=== PATIENT | male | born 1990 | race African-American/Black ===

== ENCOUNTER 2017-03-01 17:34 | Emergency (ER) | payer SELFPAY ==
[2017-03-01] MEDS ORDERED: TRAMADOL HCL 50 MG TABLET PO ONE (17:56)
[2017-03-01] MEDS ORDERED: PENICILLIN V POTASSIUM 500 MG TABLET PO ONE (17:56)
[2017-03-01] MEDS ORDERED: DIPHENHYDRAMINE HCL 25 MG CAPSULE PO ONE (17:56)
[2017-03-01] MEDS ORDERED: BUPIVACAINE HCL 0.25% /EPINEPHRINE INJ/PF 30 ML SDV INJ ONE (17:56)
--- NOTE | 2017-03-01 17:57 | ER Document Report ---
HPI - HPI Patient complains to provider of: toothache Onset: Other - 2 days ago, headache started yesterday, minimal relief with tylenol Onset/Duration: Sudden - fracture his upper left tooth 5 days ago, unsure of ZHANNA Pain Level: 4 Context: patient is a 26 year old male with toothache for 2 days after toothfracture Exacerbated by: Movement Relieved by: Remaining still Similar symptoms previously: No Recently seen / treated by doctor: No - REPRODUCTIVE Reproductive: DENIES: : - DERM Skin Color: Normal Past Medical History - Social History Smoking Status: Current Every Day Smoker Family History: Arthritis, DM, Hyperlipidemia, Hypertension, Malignancy Patient has suicidal ideation: No Patient has homicidal ideation: No Pulmonary Medical History: Reports: Hx Asthma Renal/ Medical History: Denies: Hx Peritoneal Dialysis - Immunizations Immunizations up to date: Yes Hx Diphtheria, Pertussis, Tetanus Vaccination: No Vertical Provider Document - CONSTITUTIONAL Agree With Documented VS: Yes Exam Limitations: No Limitations General Appearance: WD/WN, No Apparent Distress - INFECTION CONTROL TRAVEL OUTSIDE OF THE [place].S. IN LAST 30 DAYS: No - HEENT HEENT: Atraumatic, Normal ENT Exam, Normocephalic Mouth Diagram: 1 - fracture wiht old dental careis no fracture 2 - fracture with dental caries, no abscess Notes: Uvula midline. Airway patent. No evidence of tonsillar enlargement, peritonsillar abscess, retropharyngeal abscess. - NECK Neck: Normal Inspection, Other - no evidence of Chris's angina. negative: Lymphadenopathy-Left, Lymphadenopathy-Right - RESPIRATORY Respiratory: Breath Sounds Normal, No Respiratory Distress, Chest Non-Tender - CARDIOVASCULAR Cardiovascular: Regular Rate, Regular Rhythm, No Murmur - NEURO Level of Consciousness: Awake, Alert, Appropriate Motor/Sensory: No Motor Deficit, No Sensory Deficit Course - Re-evaluation Re-evalutation: 03/01/17 18:37 26-year-old male who is hemodynamic stable, no acute distress afebrile. Received a 5 cc Sensorcaine block with complete resolution of symptoms. No complications. Discharged home with instruction to follow-up with dentist. Procedures - Additional Procedures dental block Additional Procedures: Other - dental block: buccal 5cc sensorcaine block left cheeck, complete resolution of pain, no complications Discharge - Discharge Clinical Impression: Toothache Disposition: HOME, SELF-CARE Instructions: Penicillin V K ([facility]), Toothache ([facility]) Additional Instructions: TOOTHACHE: Your pain is due to dental decay. The tooth must be repaired in order for you to feel better. You will, therefore, be referred to a dentist. We do not have dentists on the staff at [facility]. Severe swelling or drainage around a tooth usually means a dental abscess. This also requires evaluation and treatment by the dentist, but antibiotics may be prescribed while awaiting dental treatment. You should be rechecked immediately if you develop major swelling of the face, increasing pain, a lump in the jaw or gums, headache, difficulty swallowing, or fever. ORAL NARCOTIC MEDICATION: You have been given a prescription for pain control. This medication is a narcotic. It's best taken with food, as nausea can result if taken on an empty stomach. Don't operate machinery or drive within six hours of taking this medication. Do not combine this medicine with alcohol, or with any medication which can cause sedation (such as cold tablets or sleeping pills) unless you get permission from the physician. Narcotics tend to cause constipation. If possible, drink plenty of fluids and eat a diet high in fiber and fruits. Please be aware that prescription narcotics also have the potential for abuse. People become addicted to these medications because of the general sense of wellbeing that they induce. This feeling along with a significant reduction in tension, anxiety, and aggression provides a stimulating seductive quality to these drugs. Once your pain is under control, we encourage you to discard your unused narcotics. PENICILLIN V K: You have been given a prescription for Penicillin VK. Your physician has determined that this is the best antibiotic for your condition. Pen VK can be taken with meals, however more of the antibiotic gets into the bloodstream if it's taken on an empty stomach. Penicillin usually has no side effects. However, allergy to penicillins is common. If you have had an allergic reaction to any drug of the penicillin family, you should never take any other penicillin. Notify your doctor at once if you develop hives, itching, swelling, faintness, or shortness of breath. FOLLOW-UP CARE: You have been referred for follow-up care to the dentists listed below. Call the dentists office for an appointment as you were instructed or within the next two days. If you experience worsening or a significant change in your symptoms, notify the physician immediately or return to the Emergency Department at any time for re-evaluation. [facility] Address: [address] [place] [id number] [facility] [address] [place], [place] Sunday mornings, by appointment [facility] [address] [place] [address] [facility] [place] [address] [facility] [address] [facility] ([email or web address] Roll[facility] ([email or web address])[facility] [address] [facility] [email or web address] [facility] [address] [place] [address] Sunday- 8:00am to 5:00 pm Will see patients from other [facility]. Charges based on income and family size and accepts Medicare, Medicaid, and Insurances Will pull molars [facility], [facility]. [id number] Hours of Operation 8:00 am - 4:30 pm weekdays Prescriptions: Tramadol HCl 50 mg PO Q8HP PRN #14 tablet PRN Reason: Ibuprofen [Motrin 800 mg Tablet] 800 mg PO Q8H PRN #30 tab PRN Reason: Penicillin V Potassium [Penicillin Vk 500 mg Tablet] 500 mg PO BID #20 tablet
[2017-03-01] MEDS ORDERED: BUPIVACAINE HCL 0.5 % INJ/PF 30 ML SDV INJ ONE (18:19)
[2017-03-01] MEDS ORDERED: KETOROLAC TROMETHAMINE 60 MG/2 ML SDV IM ONE (19:13)
[2017-03-01 19:33] VITALS: BP 140/74
== END 2017-03-01 19:33 | disposition home or self-care (01) ==
LOC: ER 17:34
PROC: 3E0T3BZ Introduction of Anesthetic Agent into Peripheral Nerves and Plexi, Percutaneous Approach (ICD-10-PCS; principal; 2017-03-01)
DX: K02.9 Dental caries, unspecified (principal); K08.89 Other specified disorders of teeth and supporting structures; F17.200 Nicotine dependence, unspecified, uncomplicated; J45.909 Unspecified asthma, uncomplicated
CPT/HCPCS: 99282; 96372; 64400; J1885

== ENCOUNTER 2017-03-28 02:31 | Emergency (ER) | payer SELFPAY ==
[2017-03-28] MEDS ORDERED: CLINDAMYCIN HCL 150 MG CAPSULE PO ONE (04:42)
[2017-03-28] MEDS ORDERED: HYDROCODONE/ACETAMINOPHEN 5-325 MG 6 TAB/DSPK PO PRN (04:42)
--- NOTE | 2017-03-28 04:48 | ER Document Report ---
HPI - HPI Patient complains to provider of: left jaw and tooth pain Pain Level: 5 Context: Patient is a 26-year-old male who comes emergency department for chief complaint of dental pain in the left lower jaw and jaw swelling that started yesterday. He states he was treated for dental infection 3 weeks ago and thinks it did not work. He does admit however that his symptoms resolved until yesterday. He denies sore throat, neck pain, fever. He states he feels swelling in the jaw and it feels like it is swelling up to his eye with pressure. - CARDIOVASCULAR Cardiovascular: DENIES: Chest pain - REPRODUCTIVE Reproductive: DENIES: : - DERM Skin Color: Normal Past Medical History - General Information source: Patient - Social History Smoking Status: Former Smoker Drug Abuse: None Lives with: Spouse/Significant other Family History: Arthritis, DM, Hyperlipidemia, Hypertension, Malignancy Pulmonary Medical History: Reports: Hx Asthma Renal/ Medical History: Denies: Hx Peritoneal Dialysis - Immunizations Immunizations up to date: Yes Hx Diphtheria, Pertussis, Tetanus Vaccination: No Vertical Provider Document - CONSTITUTIONAL General Appearance: WD/WN, No Apparent Distress - INFECTION CONTROL TRAVEL OUTSIDE OF THE U.S. IN LAST 30 DAYS: No - HEENT HEENT: negative: Normal ENT Exam - Patient with dental caries in the left lower molars, there are 3, there is erythema of the gumline, there is slight swelling of the outer jaw, there is no significant tenderness, induration, or fluctuance to the area. No evidence of drainable abscess. Normal throat exam, normal soft tissue exam of the neck, no lymphadenopathy, normal ENT exam otherwise. - RESPIRATORY O2 Sat by Pulse Oximetry: 99 Course - Re-evaluation Re-evalutation: Mild swelling of the left jaw area, no evidence of swelling in the submental area, no evidence of Chris's angina, unremarkable lymph node exam. No drainable abscess noted on oral exam. Tender area of swelling is still soft with no fluctuance, induration, or head. Patient will be placed on clindamycin , he states that [facility] and is to be seen next month. Discussed return precautions, patient states understanding and agreement. - Vital Signs Vital signs: Temp Pulse Resp BP Pulse Ox 99.0 F 71 18 144/75 H 99 03/28/17 02:49 03/28/17 02:49 03/28/17 02:49 07/12/17 02:49 03/28/17 02:49 Discharge - Discharge Clinical Impression: Dental infection Condition: Stable Disposition: HOME, SELF-CARE Additional Instructions: Your examination is consistent with a dental infection. Take the prescribed antibiotics to completion. Follow-up with a dentist to prevent this from happening again. Return to the emergency department if you worsen including increased pain or swelling. Prescriptions: Ibuprofen [Motrin 600 mg Tablet] 600 mg PO Q8HP PRN #24 tablet PRN Reason: Tramadol HCl 50 mg PO Q8HP PRN #20 tablet PRN Reason: Clindamycin HCl [Cleocin 150 mg Capsule] 150 mg PO Q6 #56 capsule
[2017-03-28 04:54] VITALS: BP 129/75
== END 2017-03-28 04:53 | disposition home or self-care (01) ==
LOC: ER 02:31
DX: K04.7 Periapical abscess without sinus (principal); K02.9 Dental caries, unspecified; K08.89 Other specified disorders of teeth and supporting structures; R22.0 Localized swelling, mass and lump, head; J45.909 Unspecified asthma, uncomplicated; Z87.891 Personal history of nicotine dependence
CPT/HCPCS: 99282

== ENCOUNTER 2017-03-30 01:13 | Emergency (ER) | payer SELFPAY ==
[2017-03-30 01:17] VITALS: BP 129/66
[2017-03-30] MEDS ORDERED: HYDROCODONE/ACETAMINOPHEN 5-325 MG TABLET PO ONE (01:45)
--- NOTE | 2017-03-30 01:45 | ER Document Report ---
ED General - General Chief Complaint: Toothache Stated Complaint: TOOTHACHE Time Seen by Provider: 03/30/17 01:24 Notes: Patient is a 26-year-old male who presents with complaints of a possible dental abscess. He was seen yesterday but there was not much induration or inflammation therefore placed on clindamycin. He says the last 24 hours he has had increased swelling next to his gumline and he feels that there is an abscess developing. No difficulty breathing. No difficulty swallowing. No fevers. No other complaints at this time. TRAVEL OUTSIDE OF THE U.S. IN LAST 30 DAYS: No - Related Data Allergies/Adverse Reactions: No Known Allergies Allergy (Verified 03/30/17 01:39) Past Medical History - Social History Smoking Status: Unknown if Ever Smoked Frequency of alcohol use: None Drug Abuse: None Family History: Arthritis, DM, Hyperlipidemia, Hypertension, Malignancy Patient has suicidal ideation: No Patient has homicidal ideation: No Pulmonary Medical History: Reports: Hx Asthma Renal/ Medical History: Denies: Hx Peritoneal Dialysis - Immunizations Immunizations up to date: Yes Hx Diphtheria, Pertussis, Tetanus Vaccination: No Review of Systems - Review of Systems Notes: My Normal Review Basic REVIEW OF SYSTEMS: CONSTITUTIONAL : Denies fever, chills, or sweats. Denies recent illness. EENT: Dental abscess. RESPIRATORY: Denies cough, cold, or chest congestion. Denies shortness of breath, difficulty breathing, or wheezing. MUSCULOSKELETAL: Denies neck or back pain or joint pain or swelling. SKIN: Denies rash or skin lesions. NEUROLOGICAL: Denies altered mental status or loss of consciousness. Denies headache. Denies weakness or paralysis or loss of use of either side. Denies problems with gait or speech. Denies sensory or motor loss. ALL OTHER SYSTEMS REVIEWED AND NEGATIVE. Physical Exam - Vital signs Vitals: Temp Pulse Resp BP Pulse Ox 98.6 F 70 18 129/66 H 95 03/30/17 01:16 03/30/17 01:16 03/30/17 01:16 03/30/17 01:16 03/30/17 01:16 - Notes Notes: General Appearance: Well nourished, alert, cooperative, no acute distress, moderate obvious discomfort. Vitals: reviewed, See vital signs table. Head: no swelling or tenderness to the head Eyes: PERRL, EOMI, Conjuctiva clear Mouth: Patient has multiple dental caries. Recent has some inflammation what appears to be a sara-gingival abscess just lateral to the lower left mandible. Neck: Supple, no neck tenderness, no swelling below the mandible. Skin: warm, dry, appropriate color, no rash Neuro: speech clear, oriented x 3, normal affect, responds appropriately to questions. Course - Re-evaluation Re-evalutation: 03/30/17 01:44 03/30/17 02:33 Patient is feeling much improved after the drainage of the abscess. Patient encouraged to follow-up closely with the dentist for more definitive treatment. He is encouraged to continue take clindamycin. He says he is going to [place] to see a dentist. He is on a waiting list for the dental clinic here in [facility] as well. Patient encouraged to return to ER if he has any increased swelling, fevers, difficulty breathing, or she feels unwell. Patient agrees with plan and will be discharged home. Dictation of this chart was performed using voice recognition software; therefore, there may be some unintended grammatical errors. - Vital Signs Vital signs: Temp Pulse Resp BP Pulse Ox 98.6 F 70 18 129/66 H 95 03/30/17 01:16 03/30/17 01:16 03/30/17 01:16 03/30/17 01:16 03/30/17 01:16 Procedures - Incision and Drainage left jaw Type: Simple Blade size: 11 Incision Method: Incision made with needle Amount/type of drainage: 5mls of purulent drainage Notes: 03/30/17 01:44 I initially aspirated approximately 4 mL's of purulent drainage. From the abscess that was just lateral to the left lower jaw. This was done using a syringe and 18-gauge needle. After that made a small incision with a scalpel so that there could be further drainage as needed. Patient tolerated procedure well. No complications. Discharge - Discharge Clinical Impression: Dental abscess Condition: Good Disposition: HOME, SELF-CARE Instructions: Oral Narcotic Medication ([facility]) Additional Instructions: Please continue to take the antibiotics as prescribed. Please return to the ER if you have worsening facial swelling, fevers, vomiting, difficulty breathing, swelling thatt is extending below the jaw or into the neck, or if you feel unwell. Forms: Return to Work
[2017-03-30] MEDS ORDERED: HYDROCODONE/ACETAMINOPHEN 5-325 MG 6 TAB/DSPK PO PRN (02:31)
== END 2017-03-30 02:56 | disposition home or self-care (01) ==
LOC: ER 01:13
PROC: 0C9XXZ0 Drainage of Lower Tooth, External Approach, Single (ICD-10-PCS; principal; 2017-03-30)
DX: K04.7 Periapical abscess without sinus (principal)
CPT/HCPCS: 99282

== ENCOUNTER 2017-10-25 23:29 | Emergency (ER) | payer SELFPAY ==
[2017-10-25] MEDS ORDERED: OXYCODONE-ACETAMINOPHEN 5-325 MG TABLET PO ONE (23:47)
[2017-10-25] MEDS ORDERED: DIPH/PERTUSS(ACELL)/TETANUS VAC/PF 0.5 ML SYR (>=10YO) IM ONE (23:57)
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
[2017-10-26] MEDS ORDERED: PROPOFOL INJ 200 MG/20 ML VIAL IV ONE (02:06)
[2017-10-26] MEDS ORDERED: NORMAL SALINE 1000 ML 1,000 ML IV ONE (02:07)
[2017-10-26] MEDS ORDERED: CEFAZOLIN 1 GM/D5W RTU 1 GM/50 ML RTUPB IV ONE (02:08)
[2017-10-26] MEDS ORDERED: LIDOCAINE 1% INJ-PF (10 MG/ML) 30 ML SDV INJ ONE (02:32)
[2017-10-26] MEDS ORDERED: HYDROCODONE/ACETAMINOPHEN 5-325 MG (6 TAB/ER DISP) PO PRN (04:43)
[2017-10-26] MEDS ORDERED: HYDROCODONE/ACETAMINOPHEN 5-325 MG (6 TAB/ER DISP) ONE (04:44)
[2017-10-26 04:51] VITALS: BP 123/74
--- NOTE | 2017-10-26 08:30 | RADIOLOGY REPORT (SQ) ---
EXAM DESCRIPTION: HAND RIGHT 2 VIEWS COMPLETED DATE/TIME: 10/26/2017 3:50 am REASON FOR STUDY: post reduction COMPARISON: 10/26/2017, 0005 hours EXAM PARAMETERS: NUMBER OF VIEWS: Three views. TECHNIQUE: AP, lateral and oblique radiographic images acquired of the right hand. LIMITATIONS: Ulnar gutter plaster splint FINDINGS: Artifact from plaster splint. There is persistent angulation at the 4th midshaft metacarp al fracture with slight dorsal displacement of the distal fracture fragment. Minimal persistent palmar angulation of the distal 5th metacarpal fragment. IMPRESSION: Persistent angulation at the 4th metacarpal midshaft fracture. Improved alignment at the 5th metacarpal distal diaphysis fracture TECHNICAL DOCUMENTATION: JOB ID: [id number] [employer]- All Rights Reserved
== END 2017-10-26 04:51 | disposition home or self-care (01) ==
LOC: ER 23:29
PROC: 0PSP0ZZ Reposition Right Metacarpal, Open Approach (ICD-10-PCS; principal; 2017-10-25)
DX: S62.91XB Unspecified fracture of right hand, initial encounter for open fracture (principal); M79.644 Pain in right finger(s); W22.8XXA Striking against or struck by other objects, initial encounter; F17.210 Nicotine dependence, cigarettes, uncomplicated
CPT/HCPCS: 99406; 99283; 96361; 99152; 90471; 96365; 73130; 73120; 90715; 26615; J0690; J3490; J7030

== ENCOUNTER 2017-11-01 10:12 | Emergency (ER) | payer SELFPAY ==
[2017-11-01] MEDS ORDERED: HYDROCODONE/ACETAMINOPHEN 5-325 MG (6 TAB/ER DISP) PO PRN (11:27)
--- NOTE | 2017-11-01 11:31 | ER Document Report ---
HPI - HPI Pain Level: 4 Notes: Patient is a 27-year-old male who presents to the ED for guidance in accordance to an orthopedic consult. Patient states that he does continue to have pain to his right lateral hand. Patient was found to have fractures of his fourth and fifth carpals that were realigned/reduced. Patient states that they did place one stitch to the area as well. Patient states that they called orthopedics and were told that they needed $400 upfront to get seen so they did not go to the appointment. Patient states that he is continuing to take his medications without any side effects to note. He has not noticed any worsening symptoms. Denies any drug allergies. No other concerns or complaints. Denies any headache, fever, URI, sore throat, chest pain, palpitations, syncope, cough, shortness of breath, wheeze, dyspnea, abdominal pain, nausea/vomiting/diarrhea, urinary retention, dysuria, hematuria, loss of control of bowel or bladder, numbness/tingling, muscle paralysis/weakness, abscess, erythema, warmth, purulenc, or rash. - ROS Systems Reviewed and Negative: Yes All other systems reviewed and negative - REPRODUCTIVE Reproductive: DENIES: : Past Medical History - Social History Smoking Status: Unknown if Ever Smoked Family History: Arthritis, DM, Hyperlipidemia, Hypertension, Malignancy Pulmonary Medical History: Reports: Hx Asthma Renal/ Medical History: Denies: Hx Peritoneal Dialysis - Immunizations Immunizations up to date: Yes Hx Diphtheria, Pertussis, Tetanus Vaccination: No Vertical Provider Document - CONSTITUTIONAL Agree With Documented VS: Yes Notes: PHYSICAL EXAMINATION: GENERAL: Well-appearing, well-nourished and in no acute distress. LUNGS: Breath sounds clear to auscultation bilaterally and equal. No wheezes rales or rhonchi. HEART: Regular rate and rhythm without murmurs, rubs, gallops. ABDOMEN: Soft, nontender, nondistended abdomen. No guarding, no rebound. No masses appreciated. Normal bowel sounds present. No CVA tenderness bilaterally. Musculoskeletal: splint in place and molded in plaster. N/V intact distal. From what I could see the skin does not appear erythematous or cellulitic. I did not want to completely remove the splint as patient had this reduced and XR' s taken during the procedure. Extremities: No cyanosis, clubbing, or edema b/l. Peripheral pulses 2+. Capillary refill less than 3 seconds. NEUROLOGICAL: normal speech, normal gait. Normal sensory, motor exams PSYCH: Normal mood, normal affect. SKIN: Warm, Dry, normal turgor, no rashes or lesions noted. - INFECTION CONTROL TRAVEL OUTSIDE OF THE [place] IN LAST 30 DAYS: No - RESPIRATORY O2 Sat by Pulse Oximetry: 98 Course - Re-evaluation Re-evalutation: 11/01/17 11:44 Patient is an afebrile, well-hydrated, 27-year-old male who presents to the ED for guidance on financial issues as he could not get seen by orthopedics yet. Vitals are stable. PE is otherwise unremarkable. I did not remove his splint today as it was molded and placed using sedation and x-ray, and I do not want his fracture to move if we are to take it out. I did not see any superficial signs of infection from removing the Branden wrap and looking and palpating underneath the prewrap. Patient is neurovascularly intact distal. Financial planning came and consulted with the patient. Recommend conservative measures for symptoms. Thoroughly stressed the importance of being evaluated by orthopedics as he had an open fracture at his visit a week ago. Continue her antibiotic as directed. Recheck with your PCM in 3-5 days. If financials are an issue, seek an orthopedic urgent care clinic in [place]. Reviewed options with the patient. Return to the ED with any worsening/concerning symptoms otherwise as reviewed discharge. Patient is in agreement. - Vital Signs Vital signs: Temp Pulse Resp BP Pulse Ox 98.1 F 74 14 141/80 H 98 11/01/17 10:18 11/01/17 10:18 11/01/17 10:18 11/01/17 10:18 11/01/17 10:18 Discharge - Discharge Clinical Impression: Encounter for wound re-check Condition: Stable Disposition: HOME, SELF-CARE Additional Instructions: Rest, Ice, Compression, Elevation Use splint as directed Tylenol/ibuprofen as needed F/u with your PCP in 3-5 days for a recheck It is important that you schedule a consult with Orthopedics and consider seeing in urgent care orthopedic clinic as well if he cannot afford the initial payment that is being asked of you. Return to the ED with any worsening symptoms and/or development of fever, headache, chest pain, palpitations, syncope, shortness of breath, trouble breathing, abdominal pain, n/v/d, muscle weakness/paralysis, numbness/tingling, swelling, redness, or other worsening symptoms that are concerning to you. Forms: Elevated Blood Pressure Referrals: [facility] [Provider Group] - Follow up as needed ORTHOPEDICS [Provider Group] - 11/05/17
[2017-11-01 12:06] VITALS: BP 136/68
== END 2017-11-01 12:06 | disposition home or self-care (01) ==
LOC: ER 10:12
DX: Z48.00 Encounter for change or removal of nonsurgical wound dressing (principal); M79.641 Pain in right hand; Z98.890 Other specified postprocedural states
CPT/HCPCS: 99283

== ENCOUNTER 2017-11-20 09:32 | Day surgery (SDC) | payer SELFPAY ==
[2017-11-15 11:01] LABS: ABSOLUTE EOSINOPHILS # (AUTO) 0.1 10^3/uL (0.0-0.6); ABSOLUTE MONOCYTES (AUTO) 0.4 10^3/uL (0.1-1.4); ABSOLUTE NEUT (AUTO) 2.8 10^3/uL (1.7-8.2); BASOPHILS % (AUTO) 0.5 % (0-2); EOSINOPHILS % (AUTO) 2.2 % (0-6); HEMATOCRIT 41.8 % (37.9-51.0); HEMOGLOBIN 14.3 g/dL (13.5-17.0); LYMPHOCYTES % (AUTO) 36.9 % (13-45); MEAN CORPUSCULAR HEMOGLOBIN 28.8 pg (27.0-33.4); MEAN CORPUSCULAR HGB CONC 34.2 g/dL (32.0-36.0); MEAN CORPUSCULAR VOLUME 84 fl (80-97); MONOCYTES % (AUTO) 7.5 % (3-13); PLATELET COUNT 171 10^3/uL (150-450); RED BLOOD COUNT 4.97 10^6/uL (4.35-5.55); RED CELL DISTRIBUTION WIDTH 14.9 % (11.5-14.0); SEGMENTED NEUTROPHILS % (AUTO) 52.9 % (42-78); TOTAL CELLS COUNTED % (AUTO) 100 %; WHITE BLOOD COUNT 5.3 10^3/uL (4.0-10.5)
[2017-11-15 11:22] LABS: ANION GAP 14 (5-19); BLOOD UREA NITROGEN 18 mg/dL (7-20); CALCIUM 10.3 mg/dL (8.4-10.2); CARBON DIOXIDE 24 mmol/L (22-30); CHLORIDE 105 mmol/L (98-107); GLUCOSE 95 mg/dL (75-110); POTASSIUM 4.2 mmol/L (3.6-5.0); SODIUM 143.3 mmol/L (137-145)
[2017-11-15 12:24] LABS: APPEARANCE,URINE CLEAR; BILIRUBIN,URINE NEGATIVE (NEGATIVE); COLOR,URINE YELLOW; GLUCOSE, URINE NEGATIVE (NEGATIVE); KETONES,URINE 20 mg/dL (NEGATIVE); LEUKOCYTE ESTERASE,URINE NEGATIVE (NEGATIVE); NITRITE,URINE NEGATIVE (NEGATIVE); PROTEIN,URINE NEGATIVE (NEGATIVE); URINE SPECIFIC GRAVITY 1.027
--- NOTE | 2017-11-15 12:51 | RADIOLOGY REPORT (SQ) ---
EXAM DESCRIPTION: CHEST PA/LATERAL COMPLETED DATE/TIME: 11/15/2017 11:13 am REASON FOR STUDY: PRE OP COMPARISON: 04/18/2016. EXAM PARAMETERS: NUMBER OF VIEWS: two views TECHNIQUE: Digital Frontal and Lateral radiographic views of the chest acquired. RADIATION DOSE: NA LIMITATIONS: none FINDINGS: LUNGS AND PLEURA: No opacities, masses or pneumothorax. No pleural effusion. MEDIASTINUM AND HILAR STRUCTURES: No masses or contour abnormalities. HEART AND VASCULAR STRUCTURES: Heart normal size. No evidence for failure. BONES: No acute findings. HARDWARE: None in the chest. OTHER: No other significant finding. IMPRESSION: NO SIGNIFICANT RADIOGRAPHIC FINDING IN THE CHEST. TECHNICAL DOCUMENTATION: JOB ID: [id number] [employer]- All Rights Reserved Reading location - IP/workstation name: [email or web address]
--- NOTE | 2017-11-15 13:06 | EKG REPORT ---
SEVERITY:- ABNORMAL ECG - SINUS RHYTHM NONSPECIFIC INTRAVENTRICULAR CONDUCTION DELAY PROBABLE LEFT VENTRICULAR HYPERTROPHY : Confirmed by: Edinson Harrington MD 15-Nov-2017 13:05:48
[~2017-11-20 09:32] MED LIST: ACETAMINOPHEN 100 ML IV ONE; BUPIVACAINE HCL 0.5 % INJ/PF 30 ML SDV ONE; CEFAZOLIN 2 GM/D5W RTU 2 GM/50 ML RTUPB IV SCH; FENTANYL CITRATE INJ/PF 250 MCG/5 ML AMPULE ONE; HYDROMORPHONE HCL INJ/PF 2 MG/ML AMPULE ONE; LACTATED RINGERS 1000 ML IV PRN; LIDOCAINE 0.5% INJ-PF (5 MG/ML) 50 ML SDV SUBCUT PRN; LIDOCAINE 2% INJ-PF (20 MG/ML) 10 ML AMPUL ONE; MIDAZOLAM 2 MG/2 ML INJ ONE; ONDANSETRON HCL INJ/PF 4 MG/2 ML SDV ONE; PROPOFOL INJ 200 MG/20 ML VIAL IV ONE
[2017-11-20] MEDS ORDERED: OXYCODONE-ACETAMINOPHEN 5-325 MG TABLET PO PRN ×3 (10:37→11:08)
[2017-11-20] MEDS ORDERED: DIPHENHYDRAMINE HCL 50 MG/ML VIAL IV PRN (10:37)
[2017-11-20] MEDS ORDERED: PROMETHAZINE HCL INJ 25 MG/1 ML VIAL IV PRN ×2 (10:37)
[2017-11-20] MEDS ORDERED: FENTANYL CITRATE INJ/PF 100 MCG/2 ML AMPUL IV PRN ×3 (10:37)
[2017-11-20] MEDS ORDERED: MEPERIDINE HCL/PF INJ 25 MG/1 ML DISP.SYRIN IV PRN (10:37)
[2017-11-20] MEDS ORDERED: ONDANSETRON HCL INJ/PF 4 MG/2 ML SDV IV PRN ×2 (10:37→11:08)
[2017-11-20] MEDS ORDERED: MORPHINE SULFATE 10 MG/ML INJ IV PRN (11:08)
[2017-11-20] MEDS ORDERED: RINGERS SOLUTION,LACTATED 1,000 ML IV PRN (11:08)
--- NOTE | 2017-11-20 11:08 | Discharge Summary ---
Discharge Summary (SDC) - Discharge Final Diagnosis: Right fourth/fifth metacarpal fracture Date of Surgery: 11/20/17 Discharge Date: 11/20/17 Condition: Good Treatment or Instructions: Schedule Follow Up w/ Dr. Jassi Morse @ [facility] to be seen in 10-14 days or as scheduled [place]: [place]: [place]: Ice and elevate Keep splint clean/dry/intact. If your fingers become numb please unwrap the Branden wrap but leave the splint in place, if the sensation does not return within 30 minutes please return to the emergency department. Please use ibuprofen (Motrin or Advil) 600-800 mg every 8 hours as needed for pain or fever DO NOT TAKE w/ TORADOL may use once TORADOL complete. You may also use acetaminophen (Tylenol) 1000 mg every 4-6 hours as needed for pain or fever. Please be aware that many medications contain acetaminophen, do not exceed a total of 1000 mg of acetaminophen every 6 hours. If ibuprofen and acetaminophen are not sufficient for your pain you may take the Percocet/Loris. Please be aware that the Percocet/Loris does contain Tylenol. Stool softener of choice when on pain medication. Prescriptions: Ketorolac Tromethamine [Toradol 10 mg Tablet] 10 mg PO Q8HP PRN #10 tablet PRN Reason: Oxycodone HCl/Acetaminophen [Percocet 5-325 mg Tablet] 1 - 2 tab PO ASDIR PRN # 40 tablet PRN Reason: Discharge Diet: As Tolerated Respiratory Treatments at Home: Deep Breathing/Coughing Discharge Activity: No Lifting Over 10 Pounds, No Lifting/Push/Pulling Report the Following to Your Physician Immediately: Fever over 101 Degrees, Unusual Bleeding, Redness, Swelling, Warmth, Increased Soreness
--- NOTE | 2017-11-20 11:13 | Operative Report ---
Operative Report DATE OF SURGERY: 11/20/17 PREOPERATIVE DIAGNOSIS: Right 4th/5th Metacarpal Fracture POSTOPERATIVE DIAGNOSIS: Same OPERATION: ORIF Right 4th Metacarpal Shaft Fracture. Splint Immobilization 5th Metacarpal Neck Fracture 1ST STEVEDORE HOLD: GABY CASTRO - Required for retractor placement and fracture reduction ANESTHESIA: GA COMPLICATIONS: None ESTIMATED BLOOD LOSS: Minimal PROCEDURE: Indication for above procedure: 27-year-old male who sustained injury to his right hand. He was seen at the emergency room x-rays demonstrated fourth/fifth metacarpal fracture. Closed reduction was attempted which improved alignment. Subsequently on follow-up repeat radiographs demonstrated worsening alignment. At that point we discussed treatment options including operative versus nonoperative intervention. Risks and benefits were explained patient verbalized understanding consented for the procedure. Procedure In Detail: Patient was seen and evaluated in the preoperative holding area. The RIGHT upper extremity was initialized and marked. Patient received 2g of Ancef IV for bacterial prophylaxis. Patient was taken back to the operative room where transferred to the operative table and placed under general anesthesia. Once they were adequately anesthetized a nonsterile tourniquet was placed on the upper extremity. A surgical team debriefing was performed ensuring all instrumentation was available, the surgical procedure was discussed with possible concerns reviewed. The upper extremity was prepped with chlorhexidine and alcohol and draped in a sterile fashion. A timeout was done identifying correct patient, procedure and extremity everyone in attendance agree with this and verbalized no concerns. The extremity was exsanguinated the tourniquet was inflated to 250 mmHg. Patient's fourth metacarpal fracture was partially healed thus a small longitudinal skin incision was made over the fracture site. Blunt dissection was performed retracting the extensor mechanism. Fracture site was encountered any intervening early callus formation was excised. Once the fracture was mobile reduction was held. A small longitudinal skin incision was then made over the MCP joint distally. Blunt dissection was performed. Ulnar to the extensor mechanism a small longitudinal skin incision was made to expose the fourth metacarpal head. With the fracture held reduced to guidewire for a [place] 3.0 mm headless compression screw was placed across the fracture site. I placed a 40 mm 3.0 mm headless compression screw outside the skin over the metacarpal to ensure appropriate size. Once I was satisfied with the appropriate size the metacarpal head was countersunk and a 40 mm x 3.0 mm headless compression screw was placed. Fixation of the metacarpal was achieved. There was no evidence of fracture instability. No evidence of malrotation. With attempted manipulation of the fifth metacarpal neck there was notable healing and given the current alignment which is within the acceptable confines for nonoperative treatment I proceeded with nonoperative management of the fifth metacarpal neck. Patient's skin incisions were copiously irrigated with normal saline. The extensor mechanism of the MCP joint was closed with interrupted 3-0 Vicryl suture. Skin was closed with 4-0 nylon suture. 10 cc of 0.5% Marcaine with epinephrine was injected for postoperative pain control. Wound was dressed Xeroform and 4 x 4's patient was placed in a dorsal blocking splint extending just distal to the MP joints but allowing full flexion. Tourniquet was deflated. Sponge counts, instrument counts, needle counts counts were correct. Patient was then awoken from anesthesia. Transferred from the operating room table to the operating room stretcher. There was no intraoperative complications patient tolerated procedure well stable to PACU. Postoperative plan: Patient will follow-up the office in 2 weeks will obtain radiographs at that time. He will begin range of motion exercises immediately postoperatively.
[2017-11-20] MEDS: FENTANYL CITRATE INJ/PF 100 MCG/2 ML AMPUL ONE ×2 (11:36→11:41)
[2017-11-20] MEDS ORDERED: SUCCINYLCHOLINE CHLORIDE INJ 200 MG/10 ML VIAL ONE (12:13)
--- NOTE | 2017-11-20 12:38 | RADIOLOGY REPORT (SQ) ---
EXAM DESCRIPTION: NO CHG FLUORO; FINGER RIGHT COMPLETED DATE/TIME: 11/20/2017 12:16 pm REASON FOR STUDY: ORIF R 4TH FINGER ASST WITH FLUORO IN OR S62.336A DISP FX OF NECK OF FIFTH METACA RPAL BONE, RIGHT TORRES S62.324A DISP FX OF SHAFT OF FOURTH METACARPAL BONE, RIGHT H COMPARISON: None. FLUOROSCOPY TIME: 1 minutes 27 seconds 5 images saved to PACS. TECHNIQUE: Intra-operative images acquired during surgical procedure to evaluate progress. NUMBER OF IMAGES: 5 LIMITATIONS: None. FINDINGS: Orthopedic screw fixation of 4th metacarpal fracture. Alignment is anatomic. IMPRESSION: IMAGE(S) OBTAINED DURING PROCEDURE. COMMENT: Quality ID [id number]: Final reports for procedures using fluoroscopy that document radiation exp osure indices, or exposure time and number of fluorographic images (if radiation exposure indices are not available) Please consult full operative report of the attending physician for description of the procedure. TECHNICAL DOCUMENTATION: JOB ID: [id number] [employer]- All Rights Reserved Reading location - IP/workstation name: [email or web address]
--- NOTE | 2017-11-20 12:38 | RADIOLOGY REPORT (SQ) ---
EXAM DESCRIPTION: NO CHG FLUORO; FINGER RIGHT COMPLETED DATE/TIME: 11/20/2017 12:16 pm REASON FOR STUDY: ORIF R 4TH FINGER ASST WITH FLUORO IN OR S62.336A DISP FX OF NECK OF FIFTH METACA RPAL BONE, RIGHT TORRES S62.324A DISP FX OF SHAFT OF FOURTH METACARPAL BONE, RIGHT H COMPARISON: None. FLUOROSCOPY TIME: 1 minutes 27 seconds 5 images saved to PACS. TECHNIQUE: Intra-operative images acquired during surgical procedure to evaluate progress. NUMBER OF IMAGES: 5 LIMITATIONS: None. FINDINGS: Orthopedic screw fixation of 4th metacarpal fracture. Alignment is anatomic. IMPRESSION: IMAGE(S) OBTAINED DURING PROCEDURE. COMMENT: Quality ID [id number]: Final reports for procedures using fluoroscopy that document radiation exp osure indices, or exposure time and number of fluorographic images (if radiation exposure indices are not available) Please consult full operative report of the attending physician for description of the procedure. TECHNICAL DOCUMENTATION: JOB ID: [id number] [employer]- All Rights Reserved Reading location - IP/workstation name: [facility]
[2017-11-20 13:49] VITALS: BP 134/92
== END 2017-11-20 13:40 | disposition home or self-care (01) ==
LOC: OROUT 09:32
PROVIDERS: ATTEND Orthopaedic Surgery
PROC: 0PSP04Z Reposition Right Metacarpal with Internal Fixation Device, Open Approach (ICD-10-PCS; principal; 2017-11-20 09:30)
DX: S62.336A Displaced fracture of neck of fifth metacarpal bone, right hand, initial encounter for closed fracture (principal); S62.324A Displaced fracture of shaft of fourth metacarpal bone, right hand, initial encounter for closed fracture; W22.09XA Striking against other stationary object, initial encounter; J45.909 Unspecified asthma, uncomplicated; I99.9 Unspecified disorder of circulatory system
CPT/HCPCS: 01830; 36415; 71046; 80048; 81001; 85025; 93005; 93010; J0131; J0330; J0690; J1170; J2250; J2405; J2704; J3010; J3490

== ENCOUNTER 2018-03-18 19:57 | Emergency (ER) | payer SELFPAY ==
[2018-03-18 20:01] VITALS: BP 132/79
[2018-03-18] MEDS ORDERED: CIPROFLOXACIN HCL/DEXAMETH OTIC DROP 7.5 ML AS ONE (20:42)
--- NOTE | 2018-03-18 20:49 | ER Document Report ---
HPI - HPI Pain Level: 2 Notes: Patient is a 27-year-old male no significant past medical history who presents to the ED complaining of right ear pain 1 day. Patient states that he has not noticed any drainage from his ear or swelling. Patient states he does have tenderness in his ear canal and had been swimming recently. He has not had any tinnitus. Denies any drug allergies. He is eating and drinking without any difficulties. He is urinating normally and having normal bowel movements. Denies any headache, fever, head injury, neck pain, URI, sore throat, chest pain , palpitations, syncope, cough, shortness of breath, wheeze, dyspnea, abdominal pain, nausea/vomiting/diarrhea, urinary retention, dysuria, hematuria, or rash. - ROS Systems Reviewed and Negative: Yes All other systems reviewed and negative - REPRODUCTIVE Reproductive: DENIES: : Past Medical History - Social History Smoking Status: Unknown if Ever Smoked Family History: Arthritis, DM, Hyperlipidemia, Hypertension, Malignancy - Past Medical History Cardiac Medical History: Denies: Hx Coronary Artery Disease, Hx Heart Attack, Hx Hypertension Pulmonary Medical History: Denies: Hx Asthma, Hx Bronchitis, Hx COPD, Hx Pneumonia Neurological Medical History: Denies: Hx Cerebrovascular Accident, Hx Seizures Renal/ Medical History: Denies: Hx Peritoneal Dialysis Musculoskeltal Medical History: Denies Hx Arthritis - Immunizations Immunizations up to date: Yes Hx Diphtheria, Pertussis, Tetanus Vaccination: Yes Vertical Provider Document - CONSTITUTIONAL Agree With Documented VS: Yes Notes: PHYSICAL EXAMINATION: GENERAL: Well-appearing, well-nourished and in no acute distress. A&Ox4. Answers questions appropriately. Moves comfortably w/o notable distress HEAD: Atraumatic, normocephalic. EYES: Pupils equal round and reactive to light, extraocular movements intact, sclera anicteric, conjunctiva are normal. ENT: Lt EAC/TM wnl. Rt EAC has cerumen impaction and + mild tenderness to the tragus and EAC to palp. Rt TM unable to visualize. Nares patent and without discharge. oropharynx no erythema without exudates. No tonsilar hypertrophy without erythema or exudate. No palatine shift. Uvula midline. No tongue protrusion. No drooling, hoarseness, or airway compromise. Moist mucous membranes. No sinus tenderness. NECK: Normal range of motion, supple without lymphadenopathy. No rigidity/ meningismus. LUNGS: Breath sounds clear to auscultation bilaterally and equal. No wheezes rales or rhonchi. No retractions HEART: Regular rate and rhythm without murmurs, rubs, gallops. NEUROLOGICAL: Normal speech, normal gait. PSYCH: Normal mood, normal affect. SKIN: Warm, Dry, normal turgor, no rashes or lesions noted. - INFECTION CONTROL TRAVEL OUTSIDE OF THE [place].S[place] IN LAST 30 DAYS: No Course - Re-evaluation Re-evalutation: 03/18/18 20:45 Patient is an afebrile, well-hydrated, 27-year-old male who presents to the external of his right ear as well as a cerumen impaction associated to the same ear. Vitals are acceptable without any significant tachycardia, tachypnea, or hypoxia. PE is otherwise unremarkable. The cerumen has complete impaction and is very solid-appearing in his two thirds of the way back. Patient does not have any abundant EAC swelling. We will write him first prescription for Ciprodex and Debrox. Patient is nontoxic-appearing. No other labs or imaging warranted at this time based on H&P. Low suspicion for any sepsis, meningitis, severe dehydration, respiratory compromise, mastoiditis, or other systemic emergent condition at this time. Patient is aware that condition can change from initial presentation and he needs to monitor symptoms closely and seek medical attention with any acute changes. Reviewed with patient that he will need cerumen disimpaction by an learning facilitator or primary care provider. Recheck with your PCM in 3-5 days. Return to the ED with any worsening/concerning symptoms otherwise as reviewed discharge. Patient is in agreement. - Vital Signs Vital signs: Temp Pulse Resp BP Pulse Ox 98.8 F 62 16 132/79 H 100 03/18/18 20:00 03/18/18 20:00 03/18/18 20:00 03/18/18 20:00 03/18/18 20:00 Discharge - Discharge Clinical Impression: Impacted cerumen of right ear Acute otitis externa of right ear Qualifiers: Otitis externa type: unspecified type Qualified Code(s): H60.501 - Unspecified acute noninfective otitis externa, right ear Condition: Stable Disposition: HOME, SELF-CARE Instructions: Use of Ear Drops ([facility]), Otitis Externa ([facility]), Cerumen Impaction ( [facility]) Additional Instructions: Maintain adequate fluid intake Take meds as directed tylenol/ibuprofen as needed over the counter cold medication as needed for symptoms Avoid placing Q-tips in the ears and avoid swimming I advised that you call ENT and schedule follow-up for cerumen disimpaction of your right ear. F/u: with your PCM in 3-5 days for a recheck otherwise Return to the ED with any fever, worsening pain, chest pain, palpitations, syncope, worsening COSBY, neck pain/stiffness, shortness of breath, wheezing, drooling, trouble swallowing/breathing, abdominal pain, n/v/d, rash, or worsening/concerning symptoms otherwise. Prescriptions: Carbamide Peroxide [Debrox] 5 - 10 drop OT BID #1 bottle Ciprofloxacin HCl/Dexameth [Ciprodex Otic Suspension 7.5 ml Bottle] 4 drop OT BID #1 bottle Forms: Elevated Blood Pressure Referrals: [facility]LA[facility] DC DO [ASSOCIATE] - Follow up in 3-5 days [facility] [Provider Group] - Follow up as needed [facility] [Provider Group] - Follow up as needed
== END 2018-03-18 21:08 | disposition home or self-care (01) ==
LOC: ER 19:57
DX: H60.501 Unspecified acute noninfective otitis externa, right ear (principal); H61.21 Impacted cerumen, right ear; H92.01 Otalgia, right ear
CPT/HCPCS: 99282; J3490

== ENCOUNTER 2018-06-17 15:01 | Emergency (ER) | payer SELFPAY ==
[2018-06-17] MEDS ORDERED: IPRATROPIUM/ALBUTEROL 0.5-2.5 MG/3 ML AMPUL NEB ONE ×3 (15:31→17:28)
[2018-06-17] MEDS ORDERED: METHYLPREDNISOLONE INJ 125 MG/2 ML SDV IV ONE (15:31)
[2018-06-17] MEDS ORDERED: ASPIRIN 81 MG TABLET, CHEWABLE PO ONE (15:31)
--- NOTE | 2018-06-17 15:35 | ER Document Report ---
ED Medical Screen (RME) - General Chief Complaint: Chest Pain Stated Complaint: COUGH Time Seen by Provider: 06/17/18 15:31 Mode of Arrival: Ambulatory Information source: Patient, [facility] Records Notes: 27-year-old male presents with complaint of chest pain, shortness of breath, lightheadedness that started 1 day prior to arrival. I have greeted and performed a rapid initial assessment of this patient. A comprehensive ED assessment and evaluation of the patient, analysis of test results and completion of medical decision making process we will be contacted by additional ED providers. PHYSICAL EXAMINATION: Vital signs reviewed GENERAL: Well-appearing, well-nourished and in no acute distress. LUNGS: No respiratory distress. Inspiratory wheezing Musculoskeletal: Normal range of motion NEUROLOGICAL: Normal speech, normal gait. PSYCH: Normal mood, normal affect. SKIN: Warm, Dry, normal turgor, no rashes or lesions noted. TRAVEL OUTSIDE OF THE [place] IN LAST 30 DAYS: No - HPI Onset: Yesterday Onset/Duration: Gradual, Persistent Quality of pain: Pressure Severity: Moderate Associated Symptoms: Chest pain, Dizzy/lightheaded, Hurts to breath, Shortness of breath Exacerbated by: Denies Relieved by: Denies Similar symptoms previously: No Recently seen / treated by doctor: No - Related Data Smoking: Cigarettes Frequency of alcohol use: None Drug Abuse: None Allergies/Adverse Reactions: banana Allergy (Verified 03/18/18 19:58) OYSTERS Allergy (Uncoded 11/15/17 10:39) Past Medical History - Social History Chew tobacco use (# tins/day): No Frequency of alcohol use: None Drug Abuse: Marijuana - Past Medical History Cardiac Medical History: Denies: Hx Coronary Artery Disease, Hx Heart Attack, Hx Hypertension Pulmonary Medical History: Reports: Hx Asthma Denies: Hx Bronchitis, Hx COPD, Hx Pneumonia Neurological Medical History: Denies: Hx Cerebrovascular Accident, Hx Seizures Renal/ Medical History: Denies: Hx Peritoneal Dialysis Musculoskeltal Medical History: Denies Hx Arthritis - Immunizations Immunizations up to date: Yes Hx Diphtheria, Pertussis, Tetanus Vaccination: Yes History of Influenza Vaccine for 06/2017 - 11/2017 Season: No Physical Exam - Vital signs Vitals: Temp Pulse Resp BP Pulse Ox 98.8 F 81 18 150/68 H 97 06/17/18 15:15 06/17/18 15:15 06/17/18 15:15 06/17/18 15:15 06/17/18 15:15 Course - Vital Signs Vital signs: Temp Pulse Resp BP Pulse Ox 98.8 F 81 18 150/68 H 97 06/17/18 15:15 06/17/18 15:15 06/17/18 15:15 06/17/18 15:15 06/17/18 15:15
--- NOTE | 2018-06-17 16:06 | EKG REPORT ---
SEVERITY:- ABNORMAL ECG - SINUS RHYTHM PROBABLE LEFT VENTRICULAR HYPERTROPHY ST ELEV, PROBABLE NORMAL EARLY REPOL PATTERN : Confirmed by: Edgardo Duong 17-Jun-2018 16:06:10
--- NOTE | 2018-06-17 16:10 | RADIOLOGY REPORT (SQ) ---
EXAM DESCRIPTION: CHEST 2 VIEWS COMPLETED DATE/TIME: 06/17/2018 4:01 pm REASON FOR STUDY: pain COMPARISON: 04/18/2016 EXAM PARAMETERS: NUMBER OF VIEWS: two views TECHNIQUE: Digital Frontal and Lateral radiographic views of the chest acquired. RADIATION DOSE: NA LIMITATIONS: none FINDINGS: LUNGS AND PLEURA: No opacities, masses or pneumothorax. No pleural effusion. MEDIASTINUM AND HILAR STRUCTURES: No masses or contour abnormalities. HEART AND VASCULAR STRUCTURES: Heart normal size. No evidence for failure. BONES: No acute findings. HARDWARE: None in the chest. OTHER: No other significant finding. IMPRESSION: 1. No significant interval changes since the prior study dated 04/18/2016. No acute find ings. TECHNICAL DOCUMENTATION: JOB ID: [id number] [employer]- All Rights Reserved Reading location - IP/workstation name: [email or web address]
--- NOTE | 2018-06-17 16:40 | ER Document Report ---
ED General - General Chief Complaint: Chest Pain Stated Complaint: COUGH Time Seen by Provider: 06/17/18 15:31 Mode of Arrival: Ambulatory Information source: Patient Notes: This is a 27-year-old man with a history of asthma who presents to the emergency room with cough, congestion, shortness of breath for the last several days. 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 He states his been a lot of fumes which seems to have exacerbated his symptoms. He has not had any nebulizer treatments recently. He is not followed by a doctor. His only allergies are to bananas and oysters. He is on no medicines. TRAVEL OUTSIDE OF THE [place] IN LAST 30 DAYS: No - HPI Onset: Last week Onset/Duration: Gradual Quality of pain: No pain Severity: None Pain Level: Denies Associated symptoms: Nonproductive cough, Shortness of breath. denies: Chest pain, Fever Exacerbated by: Walking Relieved by: Remaining still Similar symptoms previously: Yes Recently seen / treated by doctor: No - Related Data Allergies/Adverse Reactions: banana Allergy (Verified 03/18/18 19:58) OYSTERS Allergy (Uncoded 11/15/17 10:39) Past Medical History - General Information source: Patient, [facility] Records - Social History Smoking Status: Current Every Day Smoker Cigarette use (# per day): Yes - 1 pack/day smoking Chew tobacco use (# tins/day): No Smoking Education Provided: Yes - 2 minutes Frequency of alcohol use: None Drug Abuse: Marijuana Lives with: Family Family History: Arthritis, DM, Hyperlipidemia, Hypertension, Malignancy Patient has suicidal ideation: No Patient has homicidal ideation: No - Past Medical History Cardiac Medical History: Denies: Hx Coronary Artery Disease, Hx Heart Attack, Hx Hypertension Pulmonary Medical History: Reports: Hx Asthma Denies: Hx Bronchitis, Hx COPD, Hx Pneumonia Neurological Medical History: Denies: Hx Cerebrovascular Accident, Hx Seizures Renal/ Medical History: Denies: Hx Peritoneal Dialysis Musculoskeletal Medical History: Denies Hx Arthritis Surgical Hx: Negative - Immunizations Immunizations up to date: Yes Hx Diphtheria, Pertussis, Tetanus Vaccination: Yes Review of Systems - Review of Systems Constitutional: denies: Chills, Fever EENT: No symptoms reported Cardiovascular: denies: Chest pain, Palpitations, Heart racing Respiratory: Cough, Short of breath, Wheezing Gastrointestinal: No symptoms reported Genitourinary: No symptoms reported Male Genitourinary: No symptoms reported Musculoskeletal: No symptoms reported Skin: No symptoms reported Hematologic/Lymphatic: No symptoms reported Neurological/Psychological: Weakness Physical Exam - Vital signs Vitals: Temp Pulse Resp BP Pulse Ox 98.8 F 81 18 150/68 H 97 06/17/18 15:15 06/17/18 15:15 06/17/18 15:15 06/17/18 15:15 06/17/18 15:15 Notes: Physical exam: GENERAL: Patient is alert and oriented x3, answering questions appropriately. He does have audible wheezing. HEAD: Atraumatic, normocephalic. EYES: Pupils equal round and reactive to light, extraocular movements intact, sclera anicteric, conjunctiva are normal. ENT: TMs normal, nares patent, oropharynx clear without exudates. Moist mucous membranes. NECK: Normal range of motion, supple without obvious mass or JVD. LUNGS: Lateral wheezing with a prolonged expiratory phase. HEART: Regular rate and rhythm without murmurs, rubs or gallops. ABDOMEN: Soft, normoactive bowel sounds. No tenderness to palpation. No guarding, no rebound. No masses appreciated. EXTREMITIES: Normal range of motion, no pitting or edema. No clubbing or cyanosis. NEUROLOGICAL: Cranial nerves II through XII grossly intact. Normal speech, moving all extremities. PSYCH: Normal mood, normal affect. SKIN: Warm, Dry, normal turgor, no rashes or lesions noted. Course - Re-evaluation Re-evalutation: 06/17/18 23:47 Patient was observed several hours and treated with dual nebs, IV steroids and IV fluids. His pulmonary exam improved and he was requesting p.o. 06/17/18 23:48 He was discharged in stable condition. - Vital Signs Vital signs: Temp Pulse Resp BP Pulse Ox 98.8 F 81 20 137/69 H 96 06/17/18 15:15 06/17/18 15:15 06/17/18 20:01 06/17/18 20:00 06/17/18 20:01 - Laboratory Result Diagrams: 06/17/18 16:15 06/17/18 16:15 Laboratory results interpreted by me: 06/17/18 06/17/18 16:15 16:15 RDW 14.5 H Direct Bilirubin 0.5 H Creatine Kinase 556 H - Diagnostic Test Radiology reviewed: Image reviewed, Reports reviewed - Chest x-ray shows no infiltrates - EKG Interpretation by Me Rate: Normal Rhythm: NSR - EKG shows sinus rhythm with no acute changes, ventricular rate 74 Discharge - Discharge Clinical Impression: Asthma exacerbation Condition: Stable Disposition: HOME, SELF-CARE Additional Instructions: Recommendations: Rest, drink plenty of fluids, take the inhaler that you were given: 2 puffs every 6 hours as needed. Take the prednisone as prescribed. Recommend you follow-up with a primary care doctor: Return to the emergency room for worsening wheezing, shortness of breath or any concerns or getting worse. Prescriptions: Prednisone [Deltasone 20 mg Tablet] 3 tab PO DAILY 5 Days tablet Forms: Return to Work Referrals: [facility] [Provider Group] - Follow up as needed
[2018-06-17 16:45] LABS: ABSOLUTE EOSINOPHILS # (AUTO) 0.1 10^3/uL (0.0-0.6); ABSOLUTE LYMPHOCYTES (AUTO) 1.3 10^3/uL (0.5-4.7); ABSOLUTE MONOCYTES (AUTO) 0.5 10^3/uL (0.1-1.4); ABSOLUTE NEUT (AUTO) 3.9 10^3/uL (1.7-8.2); BASOPHILS % (AUTO) 0.6 % (0-2); EOSINOPHILS % (AUTO) 1.9 % (0-6); HEMATOCRIT 39.4 % (37.9-51.0); HEMOGLOBIN 13.6 g/dL (13.5-17.0); MEAN CORPUSCULAR HEMOGLOBIN 29.1 pg (27.0-33.4); MEAN CORPUSCULAR HGB CONC 34.4 g/dL (32.0-36.0); MEAN CORPUSCULAR VOLUME 85 fl (80-97); MONOCYTES % (AUTO) 9.3 % (3-13); PLATELET COUNT 161 10^3/uL (150-450); RED BLOOD COUNT 4.66 10^6/uL (4.35-5.55); RED CELL DISTRIBUTION WIDTH 14.5 % (11.5-14.0); SEGMENTED NEUTROPHILS % (AUTO) 66.2 % (42-78); TOTAL CELLS COUNTED % (AUTO) 100 %; WHITE BLOOD COUNT 5.9 10^3/uL (4.0-10.5)
[2018-06-17 16:57] LABS: ALANINE AMINOTRANSFERASE 21 U/L (21-72); ALBUMIN 4.6 g/dL (3.5-5.0); ALKALINE PHOSPHATASE 64 U/L (38-126); ANION GAP 8 (5-19); ASPARTATE AMINO TRANSFERASE 47 U/L (17-59); BILIRUBIN,DIRECT 0.5 mg/dL (0.0-0.4); BILIRUBIN,TOTAL 1.1 mg/dL (0.2-1.3); BLOOD UREA NITROGEN 17 mg/dL (7-20); CALCIUM 9.8 mg/dL (8.4-10.2); CARBON DIOXIDE 27 mmol/L (22-30); CHLORIDE 106 mmol/L (98-107); CREATINE KINASE 556 U/L (55-170); GLUCOSE 94 mg/dL (75-110); POTASSIUM 3.9 mmol/L (3.6-5.0); SODIUM 140.9 mmol/L (137-145)
[2018-06-17 17:14] LABS: TROPONIN I < 0.012 ng/mL
[2018-06-17] MEDS ORDERED: NORMAL SALINE 1000 ML 1,000 ML IV ONE (17:29)
[2018-06-17] MEDS ORDERED: ALBUTEROL SULFATE HFA (90 MCG/PUFF) 8 GM MDI (1 MDI/ER DISP) IH PRN (20:32)
[2018-06-17 20:33] VITALS: BP 137/69
== END 2018-06-17 20:38 | disposition home or self-care (01) ==
LOC: ER 15:01
DX: J45.901 Unspecified asthma with (acute) exacerbation (principal); R05 Cough; R06.02 Shortness of breath; R53.1 Weakness; F17.210 Nicotine dependence, cigarettes, uncomplicated; Z71.6 Tobacco abuse counseling; Z91.013 Allergy to seafood; Z91.018 Allergy to other foods
CPT/HCPCS: 93005; 94640 ×2; 99285; 96361; 96374; 36415; 82553; 82550; 85025; 80053; 84484; 71046; 93010; J2930; J3490; J7620

== ENCOUNTER 2018-09-22 10:03 | Emergency (ER) | payer SELFPAY ==
[2018-09-22] MEDS ORDERED: HYDROCODONE/ACETAMINOPHEN 5-325 MG TABLET PO ONE (10:41)
[2018-09-22] MEDS ORDERED: CLINDAMYCIN HCL 150 MG CAPSULE PO ONE (10:41)
[2018-09-22] MEDS ORDERED: LIDOCAINE 2% VISCOUS SOLN 20 ML UDCUP PO ONE (10:42)
--- NOTE | 2018-09-22 10:50 | ER Document Report ---
ED Medical Screen (RME) - General Chief Complaint: Jaw Pain Stated Complaint: MOUTH PAIN Time Seen by Provider: 09/22/18 10:32 Mode of Arrival: Ambulatory TRAVEL OUTSIDE OF THE [place] IN LAST 30 DAYS: No - HPI Patient complains to provider of: Jaw pain Onset: Other - This is a 27-year-old man with poor dentition that presents for evaluation of recurrent tooth abscess in the left side of his mouth, he notes that in the past he said similar episodes which have required treatment with clindamycin to improve his symptoms. He had seen a dentist previously who stated that he needed to get his infection in his mouth treated before he can pull it. Denies any shortness of breath, difficulty swallowing, pain in the neck. - Related Data Allergies/Adverse Reactions: banana Allergy (Verified 09/22/18 10:05) OYSTERS Allergy (Uncoded 09/22/18 10:05) Past Medical History - General Information source: Patient - Social History Cigarette use (# per day): Yes Frequency of alcohol use: None Drug Abuse: None Lives with: Family - Past Medical History Cardiac Medical History: Denies: Hx Coronary Artery Disease, Hx Heart Attack, Hx Hypertension Pulmonary Medical History: Reports: Hx Asthma Denies: Hx Bronchitis, Hx COPD, Hx Pneumonia Neurological Medical History: Denies: Hx Cerebrovascular Accident, Hx Seizures Renal/ Medical History: Denies: Hx Peritoneal Dialysis Musculoskeltal Medical History: Denies Hx Arthritis - Immunizations Immunizations up to date: Yes Hx Diphtheria, Pertussis, Tetanus Vaccination: Yes History of Influenza Vaccine for 06/2017 - 11/2017 Season: No Review of Systems - Review of Systems -: Yes All other systems reviewed and negative Physical Exam - Vital signs Vitals: Temp Pulse Resp BP Pulse Ox 98.5 F 73 16 162/94 H 100 09/22/18 10:10 09/22/18 10:10 09/22/18 10:10 09/22/18 10:10 09/22/18 10:10 - General General appearance: Appears well In distress: None - HEENT Head: Normocephalic Eyes: Normal Conjunctiva: Normal Cornea: Normal Ears: Normal Pharynx: Normal - There is swelling along the left mandible, a broken tooth in the base, tenderness to percussion - Respiratory Respiratory status: No respiratory distress Chest status: Nontender - Abdominal Inspection: Normal Tenderness: Nontender - Back Back: Normal, Nontender - Extremities General upper extremity: Normal inspection, Normal ROM General lower extremity: Normal inspection, Normal ROM - Neurological Neuro grossly intact: Yes Cognition: Normal - Psychological Associated symptoms: Normal affect, Normal mood Course - Re-evaluation Re-evalutation: 09/22/18 13:02 [age]-year-old man with a apical abscess along the left jaw. Does not demonstrate any evidence to suggest more serious underlying infection such as Chris's angina. For the mouth is soft, there is no tenderness to tracheal manipulation. He is able to swallow and handle his own secretions. We will plan for symptomatic care will administer single doors of an oral narcotic here. We will also administer viscous lidocaine. We will give a dose of clindamycin and a prescription therefore. Patient was discharged with encouraged follow-up at his dentist as previously planned. - Vital Signs Vital signs: Temp Pulse Resp BP Pulse Ox 98.5 F 73 16 162/94 H 100 09/22/18 10:10 09/22/18 10:10 09/22/18 10:10 09/22/18 10:10 09/22/18 10:10 Doctor's Discharge - Discharge Clinical Impression: Apical abscess, Jaw pain, Jaw swelling Condition: Good Disposition: HOME, SELF-CARE Instructions: Clindamycin ([facility]), Toothache ([facility]) Additional Instructions: You were seen today in the emergency department for the swelling in your jaw. It appears that you have an abscessed tooth. You have been given a medication called clindamycin which is an antibiotic to help with this. Take the clindamycin for the next week 3 times daily. Follow-up with a dentist to have this tooth pulled. You been given medication if you want to help with the pain in the tooth. Use the medication as needed, it is viscous lidocaine you can switch should in your mouth and then spit it out it should help with the pain. Return for worsening fevers or chills, if you are unable to open your mouth or you feel like you cannot breathe. Prescriptions: Clindamycin HCl 300 mg PO TID 10 Days #30 capsule Lidocaine HCl [Xylocaine 2% Viscous Soln 20 ml Udcup] 15 ml PO DAILY PRN #20 [id number] PRN Reason: Forms: Smoking Cessation Education, Elevated Blood Pressure
[2018-09-22 11:46] VITALS: BP 150/84
== END 2018-09-22 11:46 | disposition home or self-care (01) ==
LOC: ER 10:03
DX: K04.7 Periapical abscess without sinus (principal); J45.909 Unspecified asthma, uncomplicated; Z72.0 Tobacco use; Z91.018 Allergy to other foods; Z91.013 Allergy to seafood
CPT/HCPCS: 99282; J3490

== ENCOUNTER 2019-05-29 14:47 | Emergency (ER) | payer SELFPAY ==
[2019-05-29] MEDS ORDERED: KETOROLAC TROMETHAMINE INJ/PF 30 MG/1 ML SDV IV ONE (16:34)
[2019-05-29] MEDS: RINGERS SOLUTION,LACTATED 1,000 ML IV PRN ×2 (16:38→18:19)
[2019-05-29 17:19] LABS: ABSOLUTE EOSINOPHILS # (AUTO) 0.1 10^3/uL (0.0-0.6); ABSOLUTE LYMPHOCYTES (AUTO) 2.8 10^3/uL (0.5-4.7); ABSOLUTE MONOCYTES (AUTO) 0.5 10^3/uL (0.1-1.4); ABSOLUTE NEUT (AUTO) 3.2 10^3/uL (1.7-8.2); BASOPHILS % (AUTO) 0.6 % (0-2); EOSINOPHILS % (AUTO) 1.6 % (0-6); HEMATOCRIT 52.4 % (37.9-51.0); HEMOGLOBIN 17.7 g/dL (13.5-17.0); LYMPHOCYTES % (AUTO) 42.4 % (13-45); MEAN CORPUSCULAR HEMOGLOBIN 28.9 pg (27.0-33.4); MEAN CORPUSCULAR HGB CONC 33.9 g/dL (32.0-36.0); MEAN CORPUSCULAR VOLUME 85 fl (80-97); MONOCYTES % (AUTO) 7.7 % (3-13); PLATELET COUNT 167 10^3/uL (150-450); RED BLOOD COUNT 6.13 10^6/uL (4.35-5.55); RED CELL DISTRIBUTION WIDTH 15.3 % (11.5-14.0); SEGMENTED NEUTROPHILS % (AUTO) 47.7 % (42-78); TOTAL CELLS COUNTED % (AUTO) 100 %; WHITE BLOOD COUNT 6.7 10^3/uL (4.0-10.5)
[2019-05-29 17:43] LABS: ALKALINE PHOSPHATASE 82 U/L (38-126); ANION GAP 18 (5-19); ASPARTATE AMINO TRANSFERASE 53 U/L (17-59); BILIRUBIN,DIRECT 0.2 mg/dL (0.0-0.4); BILIRUBIN,TOTAL 1.7 mg/dL (0.2-1.3); BLOOD UREA NITROGEN 31 mg/dL (7-20); CALCIUM 11.8 mg/dL (8.4-10.2); CARBON DIOXIDE 30 mmol/L (22-30); CHLORIDE 92 mmol/L (98-107); GLUCOSE 95 mg/dL (75-110); POTASSIUM 4.6 mmol/L (3.6-5.0); TOTAL PROTEIN 10.9 g/dL (6.3-8.2)
[2019-05-29 17:50] LABS: CREATINE KINASE 2407 U/L (55-170)
[2019-05-29 18:02] LABS: ALBUMIN 6.3 g/dL (3.5-5.0)
--- NOTE | 2019-05-29 18:08 | ER Document Report ---
ED GI/ - General Chief Complaint: Abdominal Cramping Stated Complaint: CRAMPING Time Seen by Provider: 05/29/19 15:18 Mode of Arrival: Ambulatory Information source: Patient Notes: Patient is an otherwise healthy 28-year-old gentleman presenting to the emergency department with complaints of abdominal cramping and all over body aches. 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 Patient reports he missed work a few days ago as his child had a doctor's appointment and he states that his boss has made him work through his brakes and has not allowed him to eat and drink as he supposed to. Patient reports he tries drinking as much water as possible but states he probably only drinks about 4 bottles of water per day and has been out in the hot sun in 90 degree weather for several days. He denies any nausea, vomiting or diarrhea. He does report intermittent abdominal cramping that he thinks is related to hunger. TRAVEL OUTSIDE OF THE [place] IN LAST 30 DAYS: No - Related Data Allergies/Adverse Reactions: banana Allergy (Verified 05/29/19 14:47) OYSTERS Allergy (Uncoded 05/29/19 14:47) Past Medical History - General Information source: Patient - Social History Smoking Status: Current Every Day Smoker Chew tobacco use (# tins/day): No Frequency of alcohol use: None Drug Abuse: None Family History: Arthritis, DM, Hyperlipidemia, Hypertension, Malignancy Patient has suicidal ideation: No Patient has homicidal ideation: No - Past Medical History Cardiac Medical History: Denies: Hx Coronary Artery Disease, Hx Heart Attack, Hx Hypertension Pulmonary Medical History: Reports: Hx Asthma Denies: Hx Bronchitis, Hx COPD, Hx Pneumonia Neurological Medical History: Denies: Hx Cerebrovascular Accident, Hx Seizures Renal/ Medical History: Denies: Hx Peritoneal Dialysis Musculoskeletal Medical History: Denies Hx Arthritis - Immunizations Immunizations up to date: Yes Hx Diphtheria, Pertussis, Tetanus Vaccination: Yes Review of Systems - Review of Systems Constitutional: No symptoms reported EENT: No symptoms reported Cardiovascular: No symptoms reported Respiratory: No symptoms reported Gastrointestinal: Abdominal pain - Mid abdominal cramping Genitourinary: No symptoms reported Male Genitourinary: No symptoms reported Musculoskeletal: See HPI - All over body cramping Skin: No symptoms reported Hematologic/Lymphatic: No symptoms reported Neurological/Psychological: No symptoms reported Physical Exam - Vital signs Vitals: Temp Pulse Resp BP Pulse Ox 97.9 F 89 18 134/85 H 94 05/29/19 14:52 05/29/19 14:52 05/29/19 14:52 05/29/19 14:52 05/29/19 14:52 - Notes Notes: PHYSICAL EXAMINATION: GENERAL: Well-appearing, well-nourished and in no acute distress. HEAD: Atraumatic, normocephalic. EYES: Pupils equal round and reactive to light, extraocular movements intact, sclera anicteric, conjunctiva are normal. ENT: Nares patent, oropharynx clear without exudates. Moist mucous membranes. NECK: Normal range of motion, supple without lymphadenopathy LUNGS: Breath sounds clear to auscultation bilaterally and equal. No wheezes rales or rhonchi. HEART: Regular rate and rhythm without murmurs ABDOMEN: Soft, nontender, nondistended abdomen. No guarding, no rebound. No masses appreciated. Musculoskeletal: Normal range of motion, no pitting or edema. No cyanosis. NEUROLOGICAL: Cranial nerves grossly intact. Normal speech, normal gait. Normal sensory, motor exams PSYCH: Normal mood, normal affect. SKIN: Warm, Dry, normal turgor, no rashes or lesions noted. Course - Re-evaluation Re-evalutation: At the time of my evaluation patient is Anthony been seen by provider in triage, he is Anthony received 2 L of IV fluids and his labs are as recorded below. Patient does have a significant elevation in his CK. However patient has had a higher CK in the past. He does have a mildly elevated creatinine as well. He reports that he feels much better after IV fluid hydration here in the emergency department. Considering he looks so well, his abdomen is benign and he is not vomiting I feel it is safe to discharge him home with strict instructions to increase his fluid intake and take it easy over the next couple of days. Patient understands ED return precautions and is agreeable to same. The patient's emergency department workup and current diagnosis were explained to the patient and or family. Follow-up instructions were provided. Medications if prescribed were discussed. Instructions for when to return to the emergency department including specific worrisome symptoms were discussed with the patient and/or family. Laboratory 05/29/19 05/29/19 05/29/19 16:35 16:35 16:35 WBC 6.7 RBC 6.13 H Hgb 17.7 H Hct 52.4 H MCV 85 MCH 28.9 MCHC 33.9 RDW 15.3 H Plt Count 167 Lymph % (Auto) 42.4 [place] % (Auto) 7.7 Eos % (Auto) 1.6 Baso % (Auto) 0.6 Absolute Neuts (auto) 3.2 Absolute Lymphs (auto) 2.8 Absolute Monos (auto) 0.5 Absolute Eos (auto) 0.1 Absolute Basos (auto) 0.0 Seg Neutrophils % 47.7 Sodium 140.1 Potassium 4.6 Chloride 92 L Carbon Dioxide 30 Anion Gap 18 BUN 31 H Creatinine 1.53 H Est GFR ( Amer) > 60 Est GFR (MDRD) Non-Af 54 L Glucose 95 Calcium 11.8 H Magnesium 2.3 Total Bilirubin 1.7 H Direct Bilirubin 0.2 Neonat Total Bilirubin Not Reportable Neonat Direct Bilirubin Not Reportable Neonat Indirect Bili Not Reportable AST 53 ALT 25 Alkaline Phosphatase 82 Creatine Kinase 2407 H Total Protein 10.9 H Albumin 6.3 H Urine Color YELLOW Urine Appearance TURBID Urine pH 5.0 Ur Specific [place] 1.029 Urine Protein 100 H Urine Glucose (UA) NEGATIVE Urine Ketones TRACE H Urine Blood NEGATIVE Urine Nitrite NEGATIVE Urine Bilirubin NEGATIVE Urine Urobilinogen 2.0 H Ur Leukocyte Esterase NEGATIVE Calcium Oxalate Crystal FEW Amorphous Sediment 4+ Urine Ascorbic Acid 40 H Urine Opiates Screen Urine Methadone Screen Ur Barbiturates Screen Ur Phencyclidine Scrn Ur Amphetamines Screen U Benzodiazepines Scrn Urine Cocaine Screen U Marijuana (THC) Screen 05/29/19 16:35 WBC RBC Hgb Hct MCV MCH MCHC RDW Plt Count Lymph % (Auto) [place] % (Auto) Eos % (Auto) Baso % (Auto) Absolute Neuts (auto) Absolute Lymphs (auto) Absolute Monos (auto) Absolute Eos (auto) Absolute Basos (auto) Seg Neutrophils % Sodium Potassium Chloride Carbon Dioxide Anion Gap BUN Creatinine Est GFR ( Amer) Est GFR (MDRD) Non-Af Glucose Calcium Magnesium Total Bilirubin Direct Bilirubin Neonat Total Bilirubin Neonat Direct Bilirubin Neonat Indirect Bili AST ALT Alkaline Phosphatase Creatine Kinase Total Protein Albumin Urine Color Urine Appearance Urine pH Ur Specific [place] Urine Protein Urine Glucose (UA) Urine Ketones Urine Blood Urine Nitrite Urine Bilirubin Urine Urobilinogen Ur Leukocyte Esterase Calcium Oxalate Crystal Amorphous Sediment Urine Ascorbic Acid Urine Opiates Screen NEGATIVE Urine Methadone Screen NEGATIVE Ur Barbiturates Screen NEGATIVE Ur Phencyclidine Scrn NEGATIVE Ur Amphetamines Screen UNCONFIRMED POSITIVE U Benzodiazepines Scrn NEGATIVE Urine Cocaine Screen NEGATIVE U Marijuana (THC) Screen UNCONFIRMED POSITIVE - Vital Signs Vital signs: Temp Pulse Resp BP Pulse Ox 98.1 F 72 16 114/98 H 99 05/29/19 20:22 05/29/19 20:22 05/29/19 20:22 05/29/19 20:22 05/29/19 20:22 - Laboratory Result Diagrams: 05/29/19 16:35 05/29/19 16:35 Laboratory results interpreted by me: 05/29/19 05/29/19 05/29/19 16:35 16:35 16:35 RBC 6.13 H Hgb 17.7 H Hct 52.4 H RDW 15.3 H Chloride 92 L BUN 31 H Creatinine 1.53 H Est GFR (MDRD) Non-Af 54 L Calcium 11.8 H Total Bilirubin 1.7 H Creatine Kinase 2407 H Total Protein 10.9 H Albumin 6.3 H Urine Protein 100 H Urine Ketones TRACE H Urine Urobilinogen 2.0 H Urine Ascorbic Acid 40 H Discharge - Discharge Clinical Impression: Dehydration, Elevated CK, Elevated serum creatinine Condition: Stable Disposition: HOME, SELF-CARE Additional Instructions: You are seen in the emergency department today for body cramps. You are given IV fluids here as her labs did show dehydration. Considering you are feeling well and are able to tolerate oral intake I feel safe to send you home. I do want you having a low threshold for returning to the emergency department. I do want you to increase your fluid intake especially when you are outside working. Please return to the emergency department for any new or worsening symptoms. Forms: Return to Work
[2019-05-29 19:06] LABS: APPEARANCE,URINE TURBID; BILIRUBIN,URINE NEGATIVE (NEGATIVE); COLOR,URINE YELLOW; GLUCOSE, URINE NEGATIVE (NEGATIVE); KETONES,URINE TRACE mg/dL (NEGATIVE); LEUKOCYTE ESTERASE,URINE NEGATIVE (NEGATIVE); NITRITE,URINE NEGATIVE (NEGATIVE); PROTEIN,URINE 100 mg/dL (NEGATIVE); URINE SPECIFIC GRAVITY 1.029
[2019-05-29 19:20] LABS: URINE AMPHETAMINES SCREEN UNCONFIRMED POSITIVE; URINE BARBITURATES SCREEN NEGATIVE; URINE BENZODIAZEPINES SCREEN NEGATIVE; URINE COCAINE SCREEN NEGATIVE; URINE MARIJUANA (THC) SCREEN UNCONFIRMED POSITIVE; URINE METHADONE SCREEN NEGATIVE; URINE PHENCYCLIDINE SCREEN NEGATIVE
[2019-05-29 19:23] LABS: ADD MANUAL MICROSCOPIC YES
[2019-05-29 19:24] LABS: AMORPHOUS SEDIMENT,UR 4+; CALCIUM OXALATE CRYSTALS,UR FEW /HPF
[2019-05-29] MEDS ORDERED: FAMOTIDINE INJ/PF 20 MG/2 ML SDV IV ONE (20:07)
[2019-05-29] MEDS ORDERED: ONDANSETRON HCL INJ/PF 4 MG/2 ML SDV IV ONE (20:07)
[2019-05-29 20:26] VITALS: BP 114/98
== END 2019-05-29 20:35 | disposition home or self-care (01) ==
LOC: ER 14:47
DX: E86.0 Dehydration (principal); E87.5 Hyperkalemia; R79.89 Other specified abnormal findings of blood chemistry; M79.10 Myalgia, unspecified site
CPT/HCPCS: 99284; 36415; 82550; 83735; 85025; 80053; 81001; 80307; J1885; J2405; J7120; S0028